=== PATIENT | female | born 1980 | race American Indian/Alaskan Native ===

== ENCOUNTER 2018-07-25 00:40 | Emergency (ER) | payer MEDICAID ==
[2018-07-25 01:36] LABS: Basophils # (Auto) 0.1 K/mm3 (0.0-0.1); Basophils % (Auto) 1.1 % (0.0-1.8); Eosinophils # (Auto) 0.1 K/mm3 (0.0-0.4); Eosinophils % (Auto) 1.1 % (0.0-4.3); Hematocrit 35.3 % (30.3-42.9); Hemoglobin 11.2 gm/dl (10.1-14.3); Lymphocytes # (Auto) 1.5 K/mm3 (1.2-5.4); Lymphocytes % (Auto) 31.3 % (13.4-35.0); Mean Corpuscular HGB Conc 32 % (30-34); Mean Corpuscular Volume 78 fl (79-97); Monocytes # (Auto) 0.6 K/mm3 (0.0-0.8); Monocytes % (Auto) 12.7 % (0.0-7.3); Platelet Count 338 K/mm3 (140-440); Red Blood Count 4.53 M/mm3 (3.65-5.03)
[2018-07-25 01:45] LABS: Red Cell Distribution Width 20.8 % (13.2-15.2)
[2018-07-25 01:46] LABS: INR 1.01 (0.87-1.13)
[2018-07-25 01:58] LABS: BUN/Creatinine Ratio 10; Blood Urea Nitrogen 6 mg/dL (7-17); Calcium 9.4 mg/dL (8.4-10.2); Hemolysis Index 75
--- NOTE | 2018-07-25 02:29 | XRay Report ---
PROCEDURE: XR CHEST 1V AP TECHNIQUE: Chest radiograph single view. HISTORY: Chest Pain COMPARISONS: None . FINDINGS: Heart: Normal. Mediastinum/Vessels: Normal. Lungs/Pleural space: Normal. Bony thorax: No acute osseous abnormality. Life support devices: None. IMPRESSION: No acute cardiopulmonary abnormality. This document is electronically signed by Kurt Hudson MD., Jul 25 2018 02:26:53 AM ET
--- NOTE | 2018-07-25 03:09 | Emergency Department Report ---
ED Chest Pain HPI - General Chief Complaint: Chest Pain Stated Complaint: CHEST PAIN Time Seen by Provider: 07/25/18 02:48 Source: patient Mode of arrival: Ambulatory Limitations: No Limitations - History of Present Illness Initial Comments: This is a 38-year-old female with a history of hypertension recently started new medication who presents to ED complaining of knee chest pain 2 days. Patient states that she has an appointment with her primary care physician on Saturday. Patient says she didn't taken his hypertension medication for the past week. Patient states that pain is localized to mid to left and does not radiate. She admits recent head cold positive disease history of asthma, shortness of breath, headache or blurred vision MD Complaint: chest pain - Related Data Previous Rx's Medication Instructions Recorded Last Taken Type Naproxen [Naprosyn] 500 mg PO BID #20 tablet 07/25/18 Unknown Rx amLODIPine [Norvasc] 10 mg PO DAILY #30 tab 07/25/18 Unknown Rx Allergies Allergy/AdvReac Type Severity Reaction Status Date / Time No Known Allergies Allergy Unverified 07/25/18 00:47 Heart Score - HEART Score History: Slightly suspicious EKG: Normal Age: < 45 Risk factors: No known risk factors Troponin: < normal limit HEART Score: 0 ED Review of Systems ROS: Stated complaint: CHEST PAIN Other details as noted in HPI Comment: All other systems reviewed and negative ED Past Medical Hx - Past Medical History Previous Medical History?: Yes Hx Hypertension: Yes - Surgical History Past Surgical History?: Yes Additional Surgical History: Ovarian cyst removed, Ectopic , c-sec X 5 - Social History Smoking Status: Current Every Day Smoker Substance Use Type: None - Medications Home Medications: Home Medications Medication Instructions Recorded Confirmed Last Taken Type Naproxen [Naprosyn] 500 mg PO BID #20 tablet 07/25/18 Unknown Rx amLODIPine [Norvasc] 10 mg PO DAILY #30 tab 07/25/18 Unknown Rx ED Physical Exam - General Limitations: No Limitations General appearance: alert, in no apparent distress - Head Head exam: Present: atraumatic, normocephalic - Eye Eye exam: Present: normal appearance - ENT ENT exam: Present: mucous membranes moist - Neck Neck exam: Present: normal inspection - Respiratory Respiratory exam: Present: normal lung sounds bilaterally. Absent: respiratory distress - Cardiovascular Cardiovascular Exam: Present: regular rate, normal rhythm. Absent: systolic murmur, diastolic murmur, rubs, gallop - GI/Abdominal GI/Abdominal exam: Present: soft, normal bowel sounds - Extremities Exam Extremities exam: Present: normal inspection - Back Exam Back exam: Present: normal inspection - Neurological Exam Neurological exam: Present: alert, oriented X3 - Psychiatric Psychiatric exam: Present: normal affect, normal mood - Skin Skin exam: Present: warm, dry, intact, normal color. Absent: rash ED Course Vital Signs 07/25/18 07/25/18 07/25/18 00:48 02:23 04:39 Temperature 98.2 F Pulse Rate 87 Respiratory 18 Rate Blood Pressure 177/126 Blood Pressure 173/115 160/110 [Left] O2 Sat by Pulse 100 Oximetry ERNESTO score - Ernesto Score Age > 65: (0) No Aspirin use within the Past 7 Days: (0) No 3 or more CAD Risk Factors: (0) No 2 or more Angina events in past 24 hrs: (0) No Known CAD with more than 50% Stenosis: (0) No Elevated Cardiac Markers: (0) No ST Deviation Greater than 0.5mm: (0) No ERNESTO Score: 0 ED Medical Decision Making - Lab Data Result diagrams: 07/25/18 01:23 07/25/18 01:23 - EKG Data EKG shows normal: sinus rhythm Rate: normal - Radiology Data Radiology results: report reviewed, image reviewed TECHNIQUE: Chest radiograph single view. HISTORY: Chest Pain COMPARISONS: None . FINDINGS: Heart: Normal. Mediastinum/Vessels: Normal. Lungs/Pleural space: Normal. Bony thorax: No acute osseous abnormality. Life support devices: None. IMPRESSION: No acute cardiopulmonary abnormality. This document is electronically signed by Kurt Hudson MD., Jul 25 2018 02:26:53 AM ET Transcribed By: EDGAR Dictated By: KURT HUDSON MD Electronically Authenticated By: KURT HUDSON MD Signed Date/Time: 07/25/18228 - Medical Decision Making 38-year-old presents with chest pain. All labs within normal limits troponin negative. Chest x-ray shows no acute cardiopulmonary abnormality. Discussed his findings with the patient. Discussed the patient to follow up with primary care physician as scheduled for Saturday. Discussed referral will be given for central sterile technician and noted to follow up. Critical care attestation.: If time is entered above; I have spent that time in minutes in the direct care of this critically ill patient, excluding procedure time. ED Disposition Clinical Impression: Chest pain Disposition: DC-01 TO HOME OR SELFCARE Is pt being admited?: No Does the pt Need Aspirin: No Condition: Stable Instructions: Chest Pain (ED), Costochondritis (ED) Additional Instructions: Make sure to follow up with the primary care physician as discussed. Take all your medications as you've been prescribed. If you have any worsening symptoms or develop new symptoms please return to ED immediately. Prescriptions: Naproxen [Naprosyn] 500 mg PO BID #20 tablet amLODIPine [Norvasc] 10 mg PO DAILY #30 tab Referrals: KEITH BLANDON MD [Primary Care Provider] - 3-5 Days JOSÉ MIGUEL YAP MD [Staff Physician] - 3-5 Days Forms: Work/School Release Form(ED) Time of Disposition: 03:17
[2018-07-25] MEDS ORDERED: CATAPRES ONE (03:43)
[2018-07-25] MEDS ORDERED: IBUPROFEN ONE (03:44)
[2018-07-25] MEDS ORDERED: CATAPRES PO ONE (03:47)
[2018-07-25] MEDS ORDERED: IBUPROFEN PO ONE (03:56)
[2018-07-25 04:40] VITALS: BP 160/110
== END 2018-07-25 04:42 | disposition home or self-care (01) ==
LOC: ED 00:40
DX: R07.89 Other chest pain (principal); R06.02 Shortness of breath; I10 Essential (primary) hypertension; F17.200 Nicotine dependence, unspecified, uncomplicated
CPT/HCPCS: 36415; 71045; 80048; 84484; 85025; 85610; 93005; 93010; 99284

== ENCOUNTER 2018-09-22 11:54 | Emergency (ER) | payer MEDICAID ==
--- NOTE | 2018-09-22 12:05 | Emergency Department Report ---
Blank Doc - Documentation Documentation: This is a 38-year-old female that presents with left breast pain and swelling. Had a biopsy done few weeks ago. This initial assessment/diagnostic orders/clinical plan/treatment(s) is/are subject to change based on patient's health status, clinical progression and re-assessment by fellow clinical providers in the ED. Further treatment and workup at subsequent clinical providers discretion. Patient/guardians urged not to elope from the ED as their condition may be serious if not clinically assessed and managed. Initial orders include: 1- Patient sent to main ED for further evaluation and treatment 2- labs
[2018-09-22 12:07] VITALS: BP 154/109
[2018-09-22 12:22] LABS: Basophils # (Auto) 0.1 K/mm3 (0.0-0.1); Basophils % (Auto) 1.7 % (0.0-1.8); Eosinophils # (Auto) 0.1 K/mm3 (0.0-0.4); Eosinophils % (Auto) 1.2 % (0.0-4.3); Hematocrit 26.5 % (30.3-42.9); Hemoglobin 8.8 gm/dl (10.1-14.3); Lymphocytes # (Auto) 1.7 K/mm3 (1.2-5.4); Lymphocytes % (Auto) 25.9 % (13.4-35.0); Mean Corpuscular HGB Conc 33 % (30-34); Mean Corpuscular Volume 77 fl (79-97); Monocytes # (Auto) 0.6 K/mm3 (0.0-0.8); Monocytes % (Auto) 9.4 % (0.0-7.3); Platelet Count 253 K/mm3 (140-440); Red Blood Count 3.42 M/mm3 (3.65-5.03)
[2018-09-22 12:23] LABS: Red Cell Distribution Width 22.7 % (13.2-15.2)
--- NOTE | 2018-09-22 12:29 | Emergency Department Report ---
- General Chief Complaint: Pain General Stated Complaint: L BREAST PAIN/SWOLLEN Time Seen by Provider: 09/22/18 12:03 Source: patient Mode of arrival: Ambulatory Limitations: No Limitations - History of Present Illness Initial Comments: Mrs. Delacruz is a very pleasant 38-year-old female who is 6 days status post left breast biopsy. The biopsy was performed by breast surgeon Dr. Stern. Recently her left breast became edematous hard heavy. Denies fever. Denies injury. Follow-up with Dr. Stern's in 2 days to review the results of her breast biopsy. -: Gradual, days(s) (2) Location: chest - Related Data Previous Rx's Medication Instructions Recorded Last Taken Type Naproxen [Naprosyn] 500 mg PO BID #20 tablet 07/25/18 Unknown Rx amLODIPine [Norvasc] 10 mg PO DAILY #30 tab 07/25/18 Unknown Rx Sulfamethoxazole/Trimethoprim 1 each PO BID 7 Days #14 tablet 09/22/18 Unknown Rx [Bactrim DS TAB] cephALEXin [Keflex] 500 mg PO TID 7 Days #21 capsule 09/22/18 Unknown Rx Allergies Allergy/AdvReac Type Severity Reaction Status Date / Time No Known Allergies Allergy Verified 09/22/18 11:55 ED Review of Systems ROS: Stated complaint: L BREAST PAIN/SWOLLEN Other details as noted in HPI Comment: All other systems reviewed and negative Constitutional: denies: fever, malaise Respiratory: denies: cough, shortness of breath ED Past Medical Hx - Past Medical History Hx Hypertension: Yes - Surgical History Additional Surgical History: Ovarian cyst removed, Ectopic , c-sec X 5 biospy - Social History Smoking Status: Current Every Day Smoker Substance Use Type: None - Medications Home Medications: Home Medications Medication Instructions Recorded Confirmed Last Taken Type Naproxen [Naprosyn] 500 mg PO BID #20 tablet 07/25/18 Unknown Rx amLODIPine [Norvasc] 10 mg PO DAILY #30 tab 07/25/18 Unknown Rx Sulfamethoxazole/Trimethoprim 1 each PO BID 7 Days #14 tablet 09/22/18 Unknown Rx [Bactrim DS TAB] cephALEXin [Keflex] 500 mg PO TID 7 Days #21 capsule 09/22/18 Unknown Rx ED Physical Exam - General Limitations: No Limitations General appearance: alert, in no apparent distress - Head Head exam: Present: atraumatic, normocephalic - Eye Eye exam: Present: normal appearance - ENT ENT exam: Present: mucous membranes moist - Neck Neck exam: Present: normal inspection, full ROM - Respiratory Respiratory exam: Present: other (left breast: edematous induration at the lat eral region clean bandage and tegaderm). Absent: respiratory distress - Extremities Exam Extremities exam: Present: normal inspection, tenderness - Neurological Exam Neurological exam: Present: alert, oriented X3 - Psychiatric Psychiatric exam: Present: normal affect, normal mood - Skin Skin exam: Present: warm, dry, intact, normal color ED Course Vital Signs 09/22/18 12:03 Temperature 99.3 F Pulse Rate 92 H Respiratory 18 Rate Blood Pressure 154/109 O2 Sat by Pulse 100 Oximetry ED Medical Decision Making - Lab Data Result diagrams: 09/22/18 12:12 - Medical Decision Making Ms. Delacruz presents with induration and edema after biopsy of breast lump. Differential diagnosis includes postoperative infection, hematoma, seroma. I have prescribed Bactrim and cephalexin. She'll follow with her breast surgeon as previously scheduled in 2 days. Critical care attestation.: If time is entered above; I have spent that time in minutes in the direct care of this critically ill patient, excluding procedure time. ED Disposition Clinical Impression: Postoperative complication, H/O breast biopsy, Breast lump Disposition: -01 TO HOME OR SELFCARE Is pt being admited?: No Does the pt Need Aspirin: No Condition: Stable Additional Instructions: Please provide this discharge paperwork to Dr. Stern on your next appointment. Prescriptions: Sulfamethoxazole/Trimethoprim [Bactrim DS TAB] 1 each PO BID 7 Days #14 tablet cephALEXin [Keflex] 500 mg PO TID 7 Days #21 capsule Forms: Work/School Release Form(ED)
[2018-09-22 12:43] LABS: BUN/Creatinine Ratio 12; Blood Urea Nitrogen 7 mg/dL (7-17); Calcium 8.7 mg/dL (8.4-10.2); Hemolysis Index 0
== END 2018-09-22 12:52 | disposition home or self-care (01) ==
LOC: ED 11:54
DX: T81.89XA Other complications of procedures, not elsewhere classified, initial encounter (principal); N63.0 Unspecified lump in unspecified breast; I10 Essential (primary) hypertension; F17.200 Nicotine dependence, unspecified, uncomplicated; Z79.899 Other long term (current) drug therapy; Y84.8 Other medical procedures as the cause of abnormal reaction of the patient, or of later complication, without mention of misadventure at the time of the procedure; Y92.89 Other specified places as the place of occurrence of the external cause
CPT/HCPCS: 36415; 80048; 84703; 85025; 99283

== ENCOUNTER 2018-12-12 09:34 | Inpatient (IN) | payer MEDICAID ==
[2018-12-12] MEDS ORDERED: BENADRYL ONE (09:40)
[2018-12-12] MEDS ORDERED: DECADRON ONE (09:41)
[2018-12-12] MEDS ORDERED: PEPCID IV ONE ×2 (09:41→09:49)
[2018-12-12] MEDS ORDERED: DECADRON IV ONE (09:49)
[2018-12-12] MEDS ORDERED: BENADRYL IV ONE (09:50)
[2018-12-12] MEDS ORDERED: ATIVAN ONE (10:00)
[2018-12-12] MEDS ORDERED: LABETALOL IV ONE ×6 (10:00→11:16)
[2018-12-12] MEDS: ATIVAN IV PRN (10:05)
[2018-12-12] MEDS ORDERED: DIPRIVAN 10 MG/ML IV ONE ×3 (10:15→15:36)
[2018-12-12] MEDS ORDERED: DIPRIVAN 10 MG/ML 1,000 MG/100 ML BOTTLE IV ONE (10:15)
[2018-12-12] MEDS ORDERED: QUELICIN IV ONE (10:15)
[2018-12-12] MEDS ORDERED: APRESOLINE ONE (10:23)
[2018-12-12] MEDS ORDERED: VERSED IV NR (10:25)
[2018-12-12] MEDS ORDERED: AMIDATE IV ONE ×2 (10:25→22:54)
[2018-12-12] MEDS: DIPRIVAN 10 MG/ML 1,000 MG/100 ML BOTTLE IV SCH ×2 (10:30→20:37)
[2018-12-12] MEDS ORDERED: VASELINE LIP THERAPY TP PRN (10:31)
[2018-12-12] MEDS ORDERED: ARTIFICIAL TEARS OPHTH OINT OU PRN (10:31)
[2018-12-12] MEDS ORDERED: ATIVAN 100 MG in NACL 0.9% 50 ML, VIAFLEX EMPTY CONTAINER 0 ML IV SCH (11:00)
[2018-12-12] MEDS ORDERED: CARDENE 50 MG in NACL 0.9% 250ML 230 ML IV SCH ×2 (11:00→12:00)
--- NOTE | 2018-12-12 11:03 | XRay Report ---
CHEST 1 VIEW INDICATION: ETT placement. COMPARISON: 07/25/2018 FINDINGS: Support devices: An endotracheal tube is in satisfactory position with the tip approximately 2 cm abo ve the [place]. Heart: Within normal limits. Pulmonary vasculature: Normal. Lungs/Pleura: No acute air space or interstitial disease. No pleural effusion. No pneumothorax. Additional findings: None. IMPRESSION: Satisfactory placement of the endotracheal tube. No CHF or pneumonia. Signer Name: Josse Benson MD Signed: 12/12/2018 10:59 AM Workstation Name: [id number]
[2018-12-12] MEDS ORDERED: APRESOLINE IV ONE (11:12)
[2018-12-12] MEDS ORDERED: ZEMURON IV ONE ×2 (11:34→22:54)
[2018-12-12 12:12] LABS: Hematocrit 31.9 % (30.3-42.9); Hemoglobin 10.1 gm/dl (10.1-14.3); Mean Corpuscular HGB Conc 32 % (30-34); Mean Corpuscular Volume 76 fl (79-97); Platelet Count 309 K/mm3 (140-440); Red Blood Count 4.21 M/mm3 (3.65-5.03); Red Cell Distribution Width 19.7 % (13.2-15.2)
--- NOTE | 2018-12-12 12:21 | History and Physical Report ---
History of Present Illness Chief complaint: she cant breathe History of present illness: 38 YO Female with HTN, NIcotine Dependence presents to ED for evaluation. At time of my exam, the patient is intubated and on vent support and unable to provide history. Pt history taken from ED staff. As per staff, the patient rec ently was initiated on antihypertensive therapy with lisinopril and took her first dose last night. Pt awoke from sleep this morning with swollen lips, and sought medical care at Urgent Care. Pt seen and evaluated at [facility]. EMS was notified by the physicain and the patient transported to [facility]. Pt seen and evaluated in ED and found to have Angioedema which was complicated by Acute Hypoxemic Respiratory Failure and an inability to protect her airway. Pt intubated and placed on vent support. Pt admitted to ICU. Pulmonary team consulted in ED. Past History Past Medical History: other (hpi) Past Surgical History: , Other (breast biopsy) Social history: , lives with family, smoking. denies: alcohol abuse, prescription drug abuse Family history: diabetes, hypertension Medications and Allergies Allergies Allergy/AdvReac Type Severity Reaction Status Date / Time lisinopril Allergy Severe Angioedema Verified 12/12/18 12:50 Penicillins Allergy Unknown Unknown Verified 12/12/18 12:50 Home Medications Medication Instructions Recorded Confirmed Last Taken Type amLODIPine [Norvasc] 10 mg PO DAILY #30 tab 07/25/18 12/12/18 12/10/18 Rx Active Meds: Active Medications Hydrophilic Ointment (Vaseline Lip Therapy) 1 applic TP Q2HR PRN PRN Reason: Dry Lips Propofol (Diprivan 10 Mg/Ml) 1,000 mg in 100 mls @ 1.579 mls/hr IV TITR LIBORIO; Protocol Last Titration: 12/12/18 12:03 Dose: 25 mcg/kg/min, 7.893 mls/hr Documented by: Lorazepam 100 mg/ Sodium Chloride/ Miscellaneous Information 100 mls @ 1 mls/hr IV TITR LIBORIO; Protocol Last Titration: 12/12/18 11:52 Dose: 2 mg/hr, 2 mls/hr Documented by: Nicardipine HCl 50 mg/ Sodium (Chloride) 250 mls @ 25 mls/hr IV TITR LIBORIO; Protocol Last Admin: 12/12/18 11:45 Dose: 5 mg/hr, 25 mls/hr Documented by: Lorazepam (Ativan) 2 mg IV Q10MIN PRN PRN Reason: Agitation Last Admin: 12/12/18 10:05 Dose: 2 mg Documented by: Midazolam HCl (Versed) 2 mg IV ONCE NR Stop: 12/12/18 23:59 Last Admin: 12/12/18 10:28 Dose: 2 mg Documented by: Multi-Ingred Cream/Lotion/Oil/Oint (Artificial Tears Ophth Oint) 1 applic OU Q4HR PRN PRN Reason: Dry Eye(s) Review of Systems ROS unobtainable: due to endotracheal tube Exam - Constitutional Vitals: Temp Pulse Resp BP Pulse Ox 97.8 F 110 H 12 229/154 100 12/12/18 09:35 12/12/18 11:20 12/12/18 10:00 12/12/18 11:20 12/12/18 10:37 General appearance: Present: mild distress - EENT Eyes: Present: miosis ENT: hearing intact, clear oral mucosa - Neck Neck: Present: supple, normal ROM - Respiratory Respiratory effort: labored, accessory muscle use, stridor Respiratory: bilateral: diminished - Cardiovascular Heart Sounds: Present: S1 & S2. Absent: rub, click - Extremities Extremities: pulses symmetrical, No edema Peripheral Pulses: within normal limits - Abdominal General gastrointestinal: Present: soft, non-tender, non-distended, normal bowel sounds Female genitourinary: Present: normal - Integumentary Integumentary: Present: clear, warm, dry - Musculoskeletal Musculoskeletal: gait normal, strength equal bilaterally - Psychiatric Psychiatric: other (UTO) - Neurologic Neurologic: CNII-XII intact, moves all extremities, no gait normal Results - Labs CBC & Chem 7: 12/12/18 11:24 12/12/18 11:24 Labs: Abnormal lab results 12/12/18 12/12/18 Range/Units 11:24 11:30 WBC 11.9 H (4.5-11.0) K/mm3 MCV 76 L (79-97) fl MCH 24 L (28-32) pg RDW 19.7 H (13.2-15.2) % POC ABG pO2 385 H (80-105) Assessment and Plan - Patient Problems (1) Acute hypoxemic respiratory failure Current Visit: Yes Status: Acute Plan to address problem: Admit to ICU, wean vent as tolerated, daily SBT, supplemental oxygen, nebulizer therapy, ABG, The high probability of a clinically significant, sudden or life threatening deterioration of the [neuro, respiratory, ] system(s) required my full and direct attention, intervention and personal management. The aggregate critical care time was [65] minutes. This time is in addition to time spent performing reported procedures but includes the following: [x] Data Review and interpretation [x] Patient assessment and monitoring of vital signs [x] Documentation [x] Medication orders and management (2) Acidosis Current Visit: Yes Status: Acute Plan to address problem: IVF resuscitation therapy, supportive care. repeat bmp (3) Angioedema due to angiotensin converting enzyme inhibitor (PAM-I) Current Visit: Yes Status: Acute Plan to address problem: IV steroid therapy, supportive care, Lisinopril cessation (4) Malignant hypertension Current Visit: Yes Status: Acute Plan to address problem: Monitor bp q shift, cardene drip, (5) DVT prophylaxis Current Visit: Yes Status: Acute Plan to address problem: SCD to ble while in bed, prophylactic lovenox
[2018-12-12] MEDS ORDERED: PROVENTIL IH PRN (12:22)
[2018-12-12 12:28] LABS: BUN/Creatinine Ratio 20; Blood Urea Nitrogen 8 mg/dL (7-17); Calcium 8.7 mg/dL (8.4-10.2); Hemolysis Index 58
[2018-12-12] MEDS ORDERED: KETALAR ONE (12:33)
[2018-12-12] MEDS ORDERED: fentaNYL DRIP Premix 2,000 MCG/100 ML BAG IV ONE (12:33)
[2018-12-12] MEDS ORDERED: KETALAR IV ONE (12:33)
[2018-12-12 12:35] LABS: INR 1.09 (0.87-1.13)
[2018-12-12 12:40] LABS: Creatine Kinase MB 1.8 ng/mL (0.0-4.0)
[2018-12-12] MEDS ORDERED: fentaNYL DRIP Premix 2,000 MCG/100 ML BAG IV SCH (13:00)
[2018-12-12 13:04] LABS: Alanine Aminotransferase 9 units/L (7-56); Albumin 4.2 g/dL (3.9-5); Bilirubin,Direct 0.2 mg/dL (0-0.2)
[2018-12-12] MEDS ORDERED: NACL 0.9% 500 ML 500 ML ONE (13:11)
--- NOTE | 2018-12-12 13:27 | Consultation ---
History of Present Illness Consult date: 12/12/18 Requesting physician: RAIMUNDO PRAJAPATI Reason for consult: other (Acute hypoxemic Resp Failure on MVS; HTNsive emergency) History of present illness: PULMONARY/CCM CONSULT NOTE (Full dictation # [id number]) Please see dictated notes for full details Medications and Allergies Allergies Allergy/AdvReac Type Severity Reaction Status Date / Time lisinopril Allergy Severe Angioedema Verified 12/12/18 12:50 Penicillins Allergy Unknown Unknown Verified 12/12/18 12:50 Home Medications Medication Instructions Recorded Confirmed Last Taken Type amLODIPine [Norvasc] 10 mg PO DAILY #30 tab 07/25/18 12/12/18 12/10/18 Rx Active Meds: Active Medications Albuterol (Proventil) 2.5 mg IH Q3HRT PRN PRN Reason: Shortness Of Breath Hydrophilic Ointment (Vaseline Lip Therapy) 1 applic TP Q2HR PRN PRN Reason: Dry Lips Propofol (Diprivan 10 Mg/Ml) 1,000 mg in 100 mls @ 1.579 mls/hr IV TITR LIBORIO; Protocol Last Titration: 12/12/18 12:03 Dose: 25 mcg/kg/min, 7.893 mls/hr Documented by: Lorazepam 100 mg/ Sodium Chloride/ Miscellaneous Information 100 mls @ 1 mls/hr IV TITR LIBORIO; Protocol Last Titration: 12/12/18 11:52 Dose: 2 mg/hr, 2 mls/hr Documented by: Nicardipine HCl 50 mg/ Sodium (Chloride) 250 mls @ 25 mls/hr IV TITR LIBORIO; Protocol Last Titration: 12/12/18 12:15 Dose: 0 mg/hr, 0 mls/hr Documented by: Lorazepam (Ativan) 2 mg IV Q10MIN PRN PRN Reason: Agitation Last Admin: 12/12/18 10:05 Dose: 2 mg Documented by: Methylprednisolone Sodium Succinate (Solu-Medrol) 40 mg IV Q12HR LIBORIO Midazolam HCl (Versed) 2 mg IV ONCE NR Stop: 12/12/18 23:59 Last Admin: 12/12/18 10:28 Dose: 2 mg Documented by: Multi-Ingred Cream/Lotion/Oil/Oint (Artificial Tears Ophth Oint) 1 applic OU Q4HR PRN PRN Reason: Dry Eye(s) Sodium Chloride (Sodium Chloride Flush Syringe 10 Ml) 10 ml IV BID LIBORIO Sodium Chloride (Sodium Chloride Flush Syringe 10 Ml) 10 ml IV PRN PRN PRN Reason: LINE FLUSH Physical Examination Vital signs: Vital Signs Temp Pulse Resp BP Pulse Ox 97.8 F 89 12 202/138 100 12/12/18 09:35 12/12/18 09:35 12/12/18 09:35 12/12/18 09:35 12/12/18 09:35 Results - Laboratory Findings CBC and BMP: 12/12/18 11:24 12/12/18 11:24 ABG POC ABG pH 7.404 (7.35-7.45) 12/12/18 11:30 POC ABG pCO2 38.5 (35-45) 12/12/18 11:30 POC ABG pO2 385 (80-105) H 12/12/18 11:30 POC ABG HCO3 24.1 (22-26 mml/L) 12/12/18 11:30 POC ABG Total CO2 25 (23-27mmol/L) 12/12/18 11:30 POC ABG O2 Sat 100 12/12/18 11:30 PT/INR, D-dimer PT 13.8 Sec. (12.2-14.9) 12/12/18 12:04 INR 1.09 (0.87-1.13) 12/12/18 12:04 Abnormal lab findings: Abnormal Labs 12/12/18 12/12/18 12/12/18 11:24 11:24 11:30 WBC 11.9 H MCV 76 L MCH 24 L RDW 19.7 H POC ABG pO2 385 H Sodium 136 L Potassium 3.5 L Carbon Dioxide 19 L Creatinine 0.4 L Glucose 166 H Total Bilirubin Total Creatine Kinase 12/12/18 12/12/18 12:04 12:04 WBC MCV MCH RDW POC ABG pO2 Sodium Potassium Carbon Dioxide Creatinine Glucose Total Bilirubin 1.30 H Total Creatine Kinase 141 H
[2018-12-12] MEDS ORDERED: SUBLIMAZE IV PRN (13:31)
[2018-12-12] MEDS ORDERED: NACL 0.9% 500 ML 500 ML IV ONE (13:33)
[2018-12-12 13:40] LABS: Band Neutrophils # (Manual) 0.2 K/mm3; Eosinophils % (Manual) 0 % (0.0-4.3); Hypochromasia 1+; Platelet Estimate Consistent w Auto; Total Cells Counted 100
--- NOTE | 2018-12-12 13:53 | Emergency Department Report ---
ED General Adult HPI - General Chief complaint: Allergic Reaction Stated complaint: ALLERGIC REACTION Time Seen by Provider: 12/12/18 09:48 Source: EMS Mode of arrival: Stretcher Limitations: Physical Limitation - History of Present Illness Initial comments: This is a 38-year-old female that presents with angioedema secondary to lisinopril presumptively. She took her first lisinopril last night recently prescribed. By this morning she noted that she has swollen lips. I'm told that EMS was notified and advised her to seek care at a nearby urgent care clinic. This is not substantiated and I do not have any run sheets a prehospital care. In any case, she presented to an urgent care clinic. Likely by then her lip edema had worsened. The urgent care physician called EMS for transport. The patient arrived in the emergency department with significant lymphedema and some mild submental edema. She was not having difficulty with breathing or drooling at that time. However her voice did appear to be slightly muffled. There was no nancy stridor. Aside from the facial swelling patient had no other complaint. She's never had a reaction like this before although she is allergic to penicillin (not otherwise unspecified). -: Gradual, hour(s) Location: face Severity scale (0 -10): 0 Improves with: none Worsens with: none Associated Symptoms: denies other symptoms Treatments Prior to Arrival: none - Related Data Previous Rx's Medication Instructions Recorded Last Taken Type amLODIPine [Norvasc] 10 mg PO DAILY #30 tab 07/25/18 12/10/18 Rx Allergies Allergy/AdvReac Type Severity Reaction Status Date / Time lisinopril Allergy Severe Angioedema Verified 12/12/18 12:50 Penicillins Allergy Unknown Unknown Verified 12/12/18 12:50 ED Review of Systems ROS: Stated complaint: ALLERGIC REACTION Other details as noted in HPI Constitutional: denies: chills, fever Eyes: denies: eye pain, eye discharge, vision change ENT: denies: ear pain, throat pain Respiratory: denies: cough, shortness of breath, wheezing Cardiovascular: denies: chest pain, palpitations Endocrine: no symptoms reported Gastrointestinal: denies: abdominal pain, nausea, diarrhea Genitourinary: denies: urgency, dysuria, discharge Musculoskeletal: denies: back pain, joint swelling, arthralgia Skin: denies: rash, lesions Neurological: denies: headache, weakness, paresthesias Psychiatric: denies: anxiety, depression Hematological/Lymphatic: denies: easy bleeding, easy bruising ED Past Medical Hx - Past Medical History Previous Medical History?: Yes Hx Hypertension: Yes - Surgical History Past Surgical History?: Yes Additional Surgical History: Ovarian cyst removed, Ectopic , c-sec X 5 biospy - Social History Smoking Status: Current Some Day Smoker Substance Use Type: None - Medications Home Medications: Home Medications Medication Instructions Recorded Confirmed Last Taken Type amLODIPine [Norvasc] 10 mg PO DAILY #30 tab 07/25/18 12/12/18 12/10/18 Rx ED Physical Exam - General Limitations: Physical Limitation General appearance: alert, in no apparent distress - Head Head exam: Present: atraumatic, normocephalic - Eye Eye exam: Present: normal appearance - ENT ENT exam: Present: mucous membranes moist. Absent: normal orophraynx (there is mild edema noted of the soft palate. The uvula is still midline. There is no tongue edema. There is 2+ lip) - Neck Neck exam: Present: normal inspection, other (very mild submental edema) - Respiratory Respiratory exam: Present: normal lung sounds bilaterally. Absent: respiratory distress - Cardiovascular Cardiovascular Exam: Present: regular rate, normal rhythm. Absent: systolic murmur, diastolic murmur, rubs, gallop - GI/Abdominal GI/Abdominal exam: Present: soft, normal bowel sounds. Absent: distended, tenderness, guarding, rebound - Extremities Exam Extremities exam: Present: normal inspection - Back Exam Back exam: Present: normal inspection - Neurological Exam Neurological exam: Present: alert, oriented X3, CN II-XII intact. Absent: motor sensory deficit - Psychiatric Psychiatric exam: Present: normal affect, normal mood - Skin Skin exam: Present: warm, dry, intact, normal color. Absent: rash ED Course Vital Signs 12/12/18 12/12/18 12/12/18 09:35 09:59 10:00 Temperature 97.8 F Pulse Rate 89 105 H Pulse Rate [ 102 H Anterior Bilateral Throughout] Pulse Rate [ 146 H Posterior Bilateral Throughout] Respiratory 12 16 Rate Respiratory 22 Rate [Anterior Bilateral Throughout] Respiratory 23 Rate [Posterior Bilateral Throughout] Blood Pressure 202/138 Blood Pressure 202/138 217/135 [Left] O2 Sat by Pulse 100 100 Oximetry 12/12/18 12/12/18 12/12/18 10:15 10:30 10:37 Temperature Pulse Rate 86 104 H 101 H Pulse Rate [ Anterior Bilateral Throughout] Pulse Rate [ Posterior Bilateral Throughout] Respiratory 13 15 Rate Respiratory Rate [Anterior Bilateral Throughout] Respiratory Rate [Posterior Bilateral Throughout] Blood Pressure 138/99 Blood Pressure 187/115 138/99 [Left] O2 Sat by Pulse 100 99 100 Oximetry 12/12/18 12/12/18 12/12/18 10:45 11:00 11:15 Temperature Pulse Rate 103 H 107 H 108 H Pulse Rate [ Anterior Bilateral Throughout] Pulse Rate [ Posterior Bilateral Throughout] Respiratory 18 18 15 Rate Respiratory Rate [Anterior Bilateral Throughout] Respiratory Rate [Posterior Bilateral Throughout] Blood Pressure Blood Pressure 145/99 182/135 229/154 [Left] O2 Sat by Pulse 100 100 100 Oximetry 12/12/18 12/12/18 12/12/18 11:20 11:30 11:45 Temperature Pulse Rate 110 H 111 H 112 H Pulse Rate [ Anterior Bilateral Throughout] Pulse Rate [ Posterior Bilateral Throughout] Respiratory 17 Rate Respiratory Rate [Anterior Bilateral Throughout] Respiratory Rate [Posterior Bilateral Throughout] Blood Pressure 229/154 Blood Pressure 191/117 175/110 [Left] O2 Sat by Pulse 100 Oximetry 12/12/18 12/12/18 12/12/18 12:00 12:15 12:30 Temperature Pulse Rate 108 H 106 H 104 H Pulse Rate [ Anterior Bilateral Throughout] Pulse Rate [ Posterior Bilateral Throughout] Respiratory 17 17 17 Rate Respiratory Rate [Anterior Bilateral Throughout] Respiratory Rate [Posterior Bilateral Throughout] Blood Pressure Blood Pressure 144/95 121/77 114/72 [Left] O2 Sat by Pulse 100 100 100 Oximetry 12/12/18 12:45 Temperature Pulse Rate 101 H Pulse Rate [ Anterior Bilateral Throughout] Pulse Rate [ Posterior Bilateral Throughout] Respiratory 15 Rate Respiratory Rate [Anterior Bilateral Throughout] Respiratory Rate [Posterior Bilateral Throughout] Blood Pressure Blood Pressure 101/54 [Left] O2 Sat by Pulse 100 Oximetry - Reevaluation(s) Reevaluation #1: The patient was given medication for anaphylaxis. She was begun on a racemic neb however this was discontinued because she became tachycardic. Blood pressure was controlled with labetalol and later hydralazine. We made strong efforts to improve her blood pressure prior to RSI provider with ample sedation. When we reached a reasonable target for elective intubation which was deemed necessary she was given a paralytic. She had been given Ativan and propofol to sedate as an adoptive agent. She was intubated without difficulty on direct laryngoscopy single attempt 7.5 Mongolian endotracheal tube at 22 cm eliana. After intubation the patient's blood pressure continued to be accelerated. She was ultimately placed on a Cardene drip. Eventually her blood pressure was adequately controlled and the Cardene drip was continued. She continued to have problems with sedation so a second sedative drip was ordered. She required more immediate sedation so she was given 1 dose of ketamine when her blood pressure was normotensive. Much later, her blood pressure again became difficult to control so she was placed back on Cardene. Patient's care was transferred to Dr. Gaspar, the hospitalist and the nip wrapper. 12/12/18 15:00 - Intubation Time Out Performed: Yes Sedative: other Paralytic: Succinylcholine Laryngoscope: Dory Size: 4 ET Tube Size: 7.5 Tube Secured Depth (cm): 22 Tube Secured Location: teeth Tube Placement Confirmation: visualized tube passing t Patient Tolerated Procedure: no complications Intubation Complications: none Additional Comments: Good tube position on CXR. ED Medical Decision Making - Lab Data Result diagrams: 12/12/18 11:24 12/12/18 11:24 Laboratory Results - last 24 hr 12/12/18 12/12/18 12/12/18 11:24 11:24 11:30 WBC 11.9 H RBC 4.21 Hgb 10.1 Hct 31.9 MCV 76 L MCH 24 L MCHC 32 RDW 19.7 H Plt Count 309 Lymph % (Auto) Entry Level Marketing Assistant [place] % (Auto) Entry Level Marketing Assistant Eos % (Auto) Entry Level Marketing Assistant Baso % (Auto) Entry Level Marketing Assistant Lymph # Entry Level Marketing Assistant [place] # Entry Level Marketing Assistant Eos # Entry Level Marketing Assistant Baso # Entry Level Marketing Assistant Add Manual Diff Complete Total Counted 100 Seg Neutrophils % Entry Level Marketing Assistant Seg Neuts % (Manual) 90.0 H Band Neutrophils % 2.0 Lymphocytes % (Manual) 6.0 L Reactive Lymphs % (Man) 0 Monocytes % (Manual) 1.0 Eosinophils % (Manual) 0 Basophils % (Manual) 1.0 Metamyelocytes % 0 Myelocytes % 0 Promyelocytes % 0 Blast Cells % 0 Nucleated RBC % Not Reportable Seg Neutrophils # Entry Level Marketing Assistant Seg Neutrophils # Man 10.7 H Band Neutrophils # 0.2 Lymphocytes # (Manual) 0.7 L Abs React Lymphs (Man) 0.0 Monocytes # (Manual) 0.1 Eosinophils # (Manual) 0.0 Basophils # (Manual) 0.1 Metamyelocytes # 0.0 Myelocytes # 0.0 Promyelocytes # 0.0 Blast Cells # 0.0 WBC Morphology Not Reportable Hypersegmented Neuts Not Reportable Hyposegmented Neuts Not Reportable Hypogranular Neuts Not Reportable Smudge Cells Not Reportable Toxic Granulation Not Reportable Toxic Vacuolation Not Reportable Dohle Bodies Not Reportable Pelger-Huet Anomaly Not Reportable Art Rods Not Reportable Platelet Estimate Consistent w auto Clumped Platelets Not Reportable Plt Clumps, EDTA Not Reportable Large Platelets Not Reportable Giant Platelets Not Reportable Platelet Satelliting Not Reportable Plt Morphology Comment Not Reportable RBC Morphology Not Reportable Dimorphic RBCs Not Reportable Polychromasia Not Reportable Hypochromasia 1+ Poikilocytosis Not Reportable Anisocytosis Not Reportable Microcytosis Few Macrocytosis Not Reportable Spherocytes Not Reportable Pappenheimer Bodies Not Reportable Sickle Cells Not Reportable Target Cells Not Reportable Tear Drop Cells Not Reportable Ovalocytes Not Reportable Helmet Cells Not Reportable [place] Bodies Not Reportable Lupton Rings Not Reportable Casa Cells Not Reportable Bite Cells Not Reportable Crenated Cell Not Reportable Elliptocytes Not Reportable Acanthocytes (Spur) Not Reportable Rouleaux Not Reportable Hemoglobin C Crystals Not Reportable Schistocytes Not Reportable Malaria parasites Not Reportable Perfecto Bodies Not Reportable Hem Pathologist Commnt No PT INR APTT POC ABG pH 7.404 POC ABG pCO2 38.5 POC ABG pO2 385 H POC ABG HCO3 24.1 POC ABG Total CO2 25 POC ABG O2 Sat 100 POC ABG Base Excess -1 FiO2 70 Sodium 136 L Potassium 3.5 L Chloride 100.5 Carbon Dioxide 19 L Anion Gap 20 BUN 8 Creatinine 0.4 L Estimated GFR > 60 BUN/Creatinine Ratio 20 Glucose 166 H Lactic Acid Calcium 8.7 Magnesium Total Bilirubin Direct Bilirubin Indirect Bilirubin AST ALT Alkaline Phosphatase Total Creatine Kinase CK-MB (CK-2) CK-MB (CK-2) Rel Index Troponin T NT-Pro-B Natriuret Pep Total Protein Albumin Albumin/Globulin Ratio HCG, Qual 12/12/18 12/12/18 12/12/18 12:04 12:04 12:04 WBC RBC Hgb Hct MCV MCH MCHC RDW Plt Count Lymph % (Auto) [place] % (Auto) Eos % (Auto) Baso % (Auto) Lymph # [place] # Eos # Baso # Add Manual Diff Total Counted Seg Neutrophils % Seg Neuts % (Manual) Band Neutrophils % Lymphocytes % (Manual) Reactive Lymphs % (Man) Monocytes % (Manual) Eosinophils % (Manual) Basophils % (Manual) Metamyelocytes % Myelocytes % Promyelocytes % Blast Cells % Nucleated RBC % Seg Neutrophils # Seg Neutrophils # Man Band Neutrophils # Lymphocytes # (Manual) Abs React Lymphs (Man) Monocytes # (Manual) Eosinophils # (Manual) Basophils # (Manual) Metamyelocytes # Myelocytes # Promyelocytes # Blast Cells # WBC Morphology Hypersegmented Neuts Hyposegmented Neuts Hypogranular Neuts Smudge Cells Toxic Granulation Toxic Vacuolation Dohle Bodies Pelger-Huet Anomaly Art Rods Platelet Estimate Clumped Platelets Plt Clumps, EDTA Large Platelets Giant Platelets Platelet Satelliting Plt Morphology Comment RBC Morphology Dimorphic RBCs Polychromasia Hypochromasia Poikilocytosis Anisocytosis Microcytosis Macrocytosis Spherocytes Pappenheimer Bodies Sickle Cells Target Cells Tear Drop Cells Ovalocytes Helmet Cells [place] Bodies [place] Rings Casa Cells Bite Cells Crenated Cell Elliptocytes Acanthocytes (Spur) Rouleaux Hemoglobin C Crystals Schistocytes Malaria parasites Perfecto Bodies Hem Pathologist Commnt PT 13.8 INR 1.09 APTT 28.0 POC ABG pH POC ABG pCO2 POC ABG pO2 POC ABG HCO3 POC ABG Total CO2 POC ABG O2 Sat POC ABG Base Excess FiO2 Sodium Potassium Chloride Carbon Dioxide Anion Gap BUN Creatinine Estimated GFR BUN/Creatinine Ratio Glucose Lactic Acid Calcium Magnesium 1.70 Total Bilirubin 1.30 H Direct Bilirubin 0.2 Indirect Bilirubin 1.1 AST 25 ALT 9 Alkaline Phosphatase 59 Total Creatine Kinase 141 H CK-MB (CK-2) 1.8 CK-MB (CK-2) Rel Index 1.2 Troponin T < 0.010 NT-Pro-B Natriuret Pep 67.63 Total Protein 7.8 Albumin 4.2 Albumin/Globulin Ratio 1.2 HCG, Qual 12/12/18 12/12/18 12:04 12:04 WBC RBC Hgb Hct MCV MCH MCHC RDW Plt Count Lymph % (Auto) [place] % (Auto) Eos % (Auto) Baso % (Auto) Lymph # [place] # Eos # Baso # Add Manual Diff Total Counted Seg Neutrophils % Seg Neuts % (Manual) Band Neutrophils % Lymphocytes % (Manual) Reactive Lymphs % (Man) Monocytes % (Manual) Eosinophils % (Manual) Basophils % (Manual) Metamyelocytes % Myelocytes % Promyelocytes % Blast Cells % Nucleated RBC % Seg Neutrophils # Seg Neutrophils # Man Band Neutrophils # Lymphocytes # (Manual) Abs React Lymphs (Man) Monocytes # (Manual) Eosinophils # (Manual) Basophils # (Manual) Metamyelocytes # Myelocytes # Promyelocytes # Blast Cells # WBC Morphology Hypersegmented Neuts Hyposegmented Neuts Hypogranular Neuts Smudge Cells Toxic Granulation Toxic Vacuolation Dohle Bodies Pelger-Huet Anomaly Art Rods Platelet Estimate Clumped Platelets Plt Clumps, EDTA Large Platelets Giant Platelets Platelet Satelliting Plt Morphology Comment RBC Morphology Dimorphic RBCs Polychromasia Hypochromasia Poikilocytosis Anisocytosis Microcytosis Macrocytosis Spherocytes Pappenheimer Bodies Sickle Cells Target Cells Tear Drop Cells Ovalocytes Helmet Cells [place] Bodies Lu[place] Rings Casa Cells Bite Cells Crenated Cell Elliptocytes Acanthocytes (Spur) Rouleaux Hemoglobin C Crystals Schistocytes Malaria parasites Perfecto Bodies Hem Pathologist Commnt PT INR APTT POC ABG pH POC ABG pCO2 POC ABG pO2 POC ABG HCO3 POC ABG Total CO2 POC ABG O2 Sat POC ABG Base Excess FiO2 Sodium Potassium Chloride Carbon Dioxide Anion Gap BUN Creatinine Estimated GFR BUN/Creatinine Ratio Glucose Lactic Acid 1.00 Calcium Magnesium Total Bilirubin Direct Bilirubin Indirect Bilirubin AST ALT Alkaline Phosphatase Total Creatine Kinase CK-MB (CK-2) CK-MB (CK-2) Rel Index Troponin T NT-Pro-B Natriuret Pep Total Protein Albumin Albumin/Globulin Ratio HCG, Qual Negative Critical Care Time: Yes Critical care time in (mins) excluding proc time.: 90 Critical care attestation.: If time is entered above; I have spent that time in minutes in the direct care of this critically ill patient, excluding procedure time. 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
--- NOTE | 2018-12-12 15:49 | Cat Scan Report ---
CT HEAD WITHOUT CONTRAST INDICATION : HTN AMS. TECHNIQUE: Axial imaging performed from the skull apex through the skull base without the use of con trast. All CT scans at this location are performed using CT dose reduction for ALARA by means of aut omated exposure control. COMPARISON: None FINDINGS: Parenchyma: No abnormal density. No mass or mass effect. No hemorrhage or edema. Ventricles: Ventricles are normal in size and appear symmetric. Soft tissues: Soft tissues including the orbits appear normal. Bones: No acute osseous abnormality. Sinuses: Sinuses and mastoid air cells are clear. IMPRESSION: Normal head CT. Signer Name: Josse Benson MD Signed: 12/12/2018 3:45 PM Workstation Name: [id number]
[2018-12-12] MEDS: BENADRYL IV SCH ×2 (16:57→23:55)
[2018-12-12 17:57] LABS: Bacteria,Urine 2+ /HPF (Negative); Bilirubin,Urine NEG (Negative); Blood,Urine NEG (Negative); Color,Urine Yellow (Yellow); Hyaline Casts,Urine 4 /LPF; Mucus,Urine FEW /HPF; Protein,Urine <15 mg/dL mg/dL (Negative); Urobilinogen,Urine < 2.0 mg/dL (<2.0)
[2018-12-12 18:00] LABS: HCG Qualitative,Urine Negative (Negative)
[2018-12-12 18:15] LABS: Amphetamine Screen,Urine PRESUMPTIVE NEGATIVE; Cannabinoid Screen,Urine PRESUMPTIVE NEGATIVE; Cocaine Screen,Urine PRESUMPTIVE NEGATIVE; Methadone Screen,Urine PRESUMPTIVE NEGATIVE; Opiate Screen,Urine PRESUMPTIVE NEGATIVE
[2018-12-12 18:38] LABS: Benzodiazepines Screen,Urine PRESUMPTIVE POSITIVE
[2018-12-12] MEDS: PEPCID IV SCH (22:16)
[2018-12-12] MEDS: SOLU-Medrol IV SCH (22:16)
[2018-12-12] MEDS: SODIUM CHLORIDE FLUSH SYRINGE 10 ML IV SCH (22:17)
[2018-12-12] MEDS: ENOXAPARIN SUB-Q SCH (22:17)
[2018-12-12] MEDS: SODIUM CHLORIDE FLUSH SYRINGE 10 ML IV PRN ×2 (22:17→23:55)
[2018-12-12] MEDS ORDERED: VERSED IV ONE (22:54)
[2018-12-12] MEDS ORDERED: QUELICIN ONE (22:54)
--- NOTE | 2018-12-13 01:23 | Consultation ---
PULMONARY CRITICAL CARE CONSULTATION NOTE CONSULTING PHYSICIAN: Dr. Gaspar. REASON FOR CONSULTATION: Acute hypoxemic respiratory failure, on mechanical ventilatory support. CHIEF COMPLAINT AND HISTORY OF PRESENT ILLNESS: As follows, the patient is a 38-year-old -L[place]ian female. The past medical history as far as we can tell is significant for a diagnosis of hypertension for which she was recently started on lisinopril. According to the records, she took a first lisinopril p.o. the night before presentation. In the morning, she found that she has swollen lips. EMS was notified. They were told her to come to urgent care clinic, but again, this had through the grapevine it seems like. She did present to urgent care clinic. By then, her lipedema had worsened. Emergency medical services were called. She was brought into the Emergency Department with significant lymphedema, some mild submental edema. Her voice was beginning to sound muffled/hot potato type. The patient said she never had this kind of reaction before. At some point, despite receiving medications for anaphylaxis, the patient became significantly hypertensive. She continued to deteriorate. She was intubated, rapid sequence intubation in the ER, and transferred to the Intensive Care Unit where I stopped by to see her. When I stopped by to see her, she was resting peacefully on the mechanical ventilator, riding the set rate of 16. She was on a propofol drip at 25 mcg per kilogram per minute as well as Ativan at 2 mg per hour. I do not have any history of vomiting or overt aspiration. The patient is described as occasional smoker according to the records. This really is as much of the history of presentation as I have. PAST MEDICAL HISTORY: Hypertension. PAST SURGICAL HISTORY: She has had an ovarian cystectomy and C-sections x 5. MEDICATIONS: She was on at the time I stopped by to see her were reviewed. Pertinent medications include the following: Albuterol 2.5 mg nebulized q.3 hours p.r.n. shortness of breath, fentanyl drip to be started at 1 mcg/kg per hour. She was on Ativan 2 mg per hour. She was on propofol as mentioned above, Solu-Medrol 40 mg IV q.12 hours. Nicardipine drip had been going at 5 mg an hour. She received some Decadron in the Emergency Room. ALLERGIES: LISINOPRIL AND PENICILLINS. It appears LISINOPRIL causes angioedema. DIET: Thin lady, acute weight loss or gain, history is unknown. FAMILY AND SOCIAL HISTORY: Apparently lives in the community. Occasional smoker per the records. Alcohol, tobacco, or illicit drug use or abuse history is otherwise unknown. Family history is otherwise unobtainable. REVIEW OF SYSTEMS: Unobtainable secondary to the patient's medical and mental condition. Since she has been here, no gross hematochezia or melena, no gross hematuria, no hematemesis, no bloody tracheal secretions, no witnessed seizures. Review of systems otherwise as in the body of history above. PHYSICAL EXAMINATION: VITAL SIGNS: On examination at presentation in the Emergency Room, afebrile, temperature 97.8 degrees Fahrenheit, pulse of 89, respiratory rate of 12, blood pressure was 202/138, O2 sats 100%, inspired oxygen concentration at that time was not recorded. When I stopped by to see her, her O2 sats were 99% that was on the assist control mode of ventilation, tidal volumes 450, rate of 16 and a PEEP of 6, and FiO2, I believe was 50%. GENERAL: She is an -L[place]uanian female, who is intubated on the mechanical ventilator with obvious lip and submental swelling without significant patient ventilator dyssynchrony. HEAD, EYES, EARS, NOSE AND THROAT: She is anicteric. No conjunctival erythema. Oropharynx is moist. ET tube is about 23-24 cm at the lips. No gross jugular venous distention, no thyromegaly. Her lips are swollen. NECK: Grossly, no palpable lymph nodes in the supraclavicular or submandibular lymph node chains. LUNGS: Auscultation of both lung esteban unremarkable. Lungs are clear bilaterally. Good bilateral breath sounds. HEART: Heart sounds 1 and 2 are heard. They were regular in rate and rhythm at time of my evaluation without overt rubs or murmurs. ABDOMEN: Soft, flat. Bowel sounds are positive, nontender, no palpable hepatosplenomegaly. EXTREMITIES: Without overt digital clubbing or cyanosis. No pedal edema. No suprapubic tenderness or swelling or obvious mass. NEUROLOGIC: Pupils were about 1 mm bilaterally. Extraocular muscle movements could not be accessed. She was moving her all extremities to stimulation, but not waking up to command. SKIN: Normal turgor without overt cellulitis or rash. LABORATORY DATA: From my review are as follows: White cell count 11,900, hemoglobin 10.1, hematocrit 31.9, and platelet count 309. No band forms reported on the manual differential. INR 1.09. Arterial blood gas showed a pH of 7.40, pCO2 of 39, pO2 of 385 that was on the above-mentioned vent settings on 70% FiO2. Serum sodium 136, potassium 3.5, chloride 101, bicarbonate 19, BUN 8, creatinine 0.4, glucose was 166. Lactic acid level within normal limits. Total bilirubin slightly elevated at 1.3. Otherwise, liver function tests essentially within normal limits. Troponin within normal limits. test negative. Tracheal aspirate is pending. She had a CT scan of the head. I await the official report. A chest x-ray was done. Essentially, it shows endotracheal tube with the tip at the level of the aortic knob about 3-4 cm above the rosanna, otherwise unremarkable. Lungs are clear bilaterally. ASSESSMENT: 1. Acute respiratory failure, now on mechanical ventilatory support. 2. Angioedema, presumably secondary to lisinopril ingestion. 3. Hypertension. 4. Oropharyngeal dysphagia. 5. Mild leukocytosis. 6. Mild metabolic acidosis as evidenced with a serum bicarbonate of 19. 7. Hyperbilirubinemia. PLAN: We will keep her on the ventilator in the short time. I will add antihistamine therapy with Benadryl and Pepcid and continue the systemic steroids. We will follow her clinically off antibiotics. Ventilator-associated pneumonia bundle will be introduced. Oxygen will be weaned to keep sats greater than or equal to about 90%. Aspiration precautions will be maintained. Bronchodilators will be kept on a p.r.n. basis. Potassium will be supplemented 40 mEq KCl orally. Nutrition consult will be placed for enteral nutrition to begin. Feeding tube will be ordered and a KUB will be used for confirmation. I will put her on GI and DVT prophylaxis. Sedation will be titrated to reach RASS scale of 0 to -1. Flu and pneumonia vaccination will be addressed per protocol. Thank you very much for the consult Dr. Gaspar and Dr. Null. We will follow along and make further recommendations as picture progresses/becomes clearer. She is critically ill on life-sustaining interventions including mechanical ventilatory support at high risk of deterioration including the risk of . At this time, I spent about 35 minutes of critical care time without overlap excluding any procedural time that may be necessary. JOB# [id number] CARMEN/SONYA WEINSTEIN
--- NOTE | 2018-12-13 04:09 | XRay Report ---
CHEST 1 VIEW INDICATION / CLINICAL INFORMATION: follow up respiratory failure. COMPARISON: 12/12/2018 FINDINGS: SUPPORT DEVICES: No significant change in position. HEART / MEDIASTINUM: The cardiomediastinal silhouette has not significantly changed in the interim. LUNGS / PLEURA: No significant pulmonary or pleural abnormality. No pneumothorax. Signer Name: Joao Myers MD Signed: 12/13/2018 4:05 AM Workstation Name: [id number]
[2018-12-13 05:29] LABS: Alanine Aminotransferase 9 units/L (7-56); BUN/Creatinine Ratio 16; Blood Urea Nitrogen 11 mg/dL (7-17); Calcium 8.7 mg/dL (8.4-10.2); Hemolysis Index 4
[2018-12-13] MEDS: BENADRYL IV SCH ×2 (07:59→16:14)
[2018-12-13] MEDS: PEPCID IV SCH ×2 (09:26→21:31)
[2018-12-13] MEDS: SOLU-Medrol IV SCH ×2 (09:26→21:31)
[2018-12-13] MEDS: SODIUM CHLORIDE FLUSH SYRINGE 10 ML IV SCH ×2 (09:26→21:32)
[2018-12-13] MEDS: DIPRIVAN 10 MG/ML 1,000 MG/100 ML BOTTLE IV SCH ×2 (09:27→21:30)
--- NOTE | 2018-12-13 12:21 | Progress Note ---
Assessment and Plan / Acute hypoxemic respiratory failure due to angioedema Monitor ICU, wean off vent as tolerated, daily SBT, supplemental oxygen, nebulizer therapy, ABG, The high probability of a clinically significant, sudden or life threatening deterioration of the [neuro, respiratory, ] system(s) required my full and direct attention, intervention and personal management. The aggregate critical care time was [65] minutes. This time is in addition to time spent performing reported procedures but includes the following: [x] Data Review and interpretation [x] Patient assessment and monitoring of vital signs [x] Documentation [x] Medication orders and management / Angioedema due to angiotensin converting enzyme inhibitor (PAM-I): cont IV steroid therapy, supportive care, Lisinopril cessation iv benadryl /Metabolic Acidosis IVF resuscitation therapy, supportive care. repeat bmp / Malignant hypertension Monitor bp, wean off cardene drip as tolerated, /Hypokalemia, repleted /SIRS due to respiratory failure from angioedema - cont to monitor off abx, ordered tracheal aspirate / DVT prophylaxis SCD to ble while in bed, prophylactic lovenox Subjective Date of service: 12/13/18 Interval history: Patient seen and examined Patient intubated and sedated No family member at bedside discussed plan of care with RN Objective - Constitutional Vitals: Vital Signs - 12hr 12/13/18 12/13/18 12/13/18 00:30 00:34 01:00 Temperature Pulse Rate 92 H 92 H 90 Respiratory 16 16 Rate Blood Pressure 141/101 141/101 155/102 O2 Sat by Pulse 100 100 Oximetry 12/13/18 12/13/18 12/13/18 01:30 02:00 02:30 Temperature Pulse Rate 91 H 89 90 Respiratory 16 16 16 Rate Blood Pressure 137/101 144/98 143/97 O2 Sat by Pulse Oximetry 12/13/18 12/13/18 12/13/18 03:00 03:30 03:48 Temperature Pulse Rate 93 H 93 H Respiratory 14 16 20 Rate Blood Pressure 144/99 138/98 O2 Sat by Pulse 99 Oximetry 12/13/18 12/13/18 12/13/18 04:00 04:12 04:30 Temperature 99.3 F Pulse Rate 92 H 92 H 93 H Respiratory 16 14 Rate Blood Pressure 137/94 137/94 144/102 O2 Sat by Pulse 100 Oximetry 12/13/18 12/13/1819 05:00 05:30 06:00 Temperature Pulse Rate 91 H 91 H 87 Respiratory 14 14 14 Rate Blood Pressure 138/97 129/93 125/87 O2 Sat by Pulse Oximetry 12/13/18 12/13/18 12/13/18 06:30 07:00 07:30 Temperature Pulse Rate 85 86 84 Respiratory 14 14 14 Rate Blood Pressure 128/84 128/89 121/85 O2 Sat by Pulse Oximetry 12/13/18 12/13/18 12/13/18 08:00 08:30 09:00 Temperature 99.5 F Pulse Rate 82 83 80 Respiratory 14 14 14 Rate Blood Pressure 132/87 133/92 133/88 O2 Sat by Pulse 100 Oximetry 12/13/18 12/13/18 12/13/18 09:30 10:00 10:30 Temperature Pulse Rate 80 83 80 Respiratory 14 14 14 Rate Blood Pressure 130/88 142/94 158/101 O2 Sat by Pulse Oximetry 12/13/18 12/13/18 12/13/18 10:35 11:00 11:30 Temperature Pulse Rate 83 80 84 Respiratory 14 14 12 Rate Blood Pressure 158/101 161/109 171/111 O2 Sat by Pulse 100 100 Oximetry 12/13/18 12:00 Temperature Pulse Rate 86 Respiratory 13 Rate Blood Pressure 172/115 O2 Sat by Pulse 100 Oximetry General appearance: Present: no acute distress - EENT Eyes: no scleral icterus, no conjunctival injection ENT: clear oral mucosa, other (swelling of the lowe lip noted) Ears: bilateral: normal - Neck Neck: no enlarged thyroid, no masses or JVD - Respiratory Respiratory: bilateral: CTA (on vent) - Cardiovascular Rhythm: regular Heart Sounds: Present: S1 & S2. Absent: gallop, rub Extremities: pulses intact, No edema, normal color - Gastrointestinal General gastrointestinal: Present: soft, non-distended, normal bowel sounds - Integumentary Integumentary: clear, warm, dry - Neurologic Neurologic: other (sedated) - Psychiatric Psychiatric: other (unable to asess) - Labs CBC & Chem 7: 12/14/18 05:01 12/14/18 05:01 Labs: Abnormal lab results 12/12/18 12/12/18 12/12/18 Range/Units 11:24 11:24 12:04 Seg Neuts % (Manual) 90.0 H (40.0-70.0) % Lymphocytes % (Manual) 6.0 L (13.4-35.0) % Seg Neutrophils # Man 10.7 H (1.8-7.7) K/mm3 Lymphocytes # (Manual) 0.7 L (1.2-5.4) K/mm3 POC ABG pH (7.35-7.45) POC ABG pCO2 (35-45) POC ABG pO2 (80-105) Sodium 136 L (137-145) mmol/L Potassium 3.5 L (3.6-5.0) mmol/L Carbon Dioxide 19 L (22-30) mmol/L Creatinine 0.4 L (0.7-1.2) mg/dL Glucose 166 H (65-100) mg/dL Total Bilirubin (0.1-1.2) mg/dL Total Creatine Kinase 141 H (30-135) units/L Urine WBC (Auto) (0.0-6.0) /HPF 12/12/18 12/12/18 12/13/18 Range/Units 12:04 17:00 04:05 Seg Neuts % (Manual) (40.0-70.0) % Lymphocytes % (Manual) (13.4-35.0) % Seg Neutrophils # Man (1.8-7.7) K/mm3 Lymphocytes # (Manual) (1.2-5.4) K/mm3 POC ABG pH (7.35-7.45) POC ABG pCO2 (35-45) POC ABG pO2 (80-105) Sodium 136 L (137-145) mmol/L Potassium (3.6-5.0) mmol/L Carbon Dioxide 19 L (22-30) mmol/L Creatinine (0.7-1.2) mg/dL Glucose 126 H (65-100) mg/dL Total Bilirubin 1.30 H (0.1-1.2) mg/dL Total Creatine Kinase (30-135) units/L Urine WBC (Auto) 7.0 H (0.0-6.0) /HPF 12/13/18 Range/Units 04:32 Seg Neuts % (Manual) (40.0-70.0) % Lymphocytes % (Manual) (13.4-35.0) % Seg Neutrophils # Man (1.8-7.7) K/mm3 Lymphocytes # (Manual) (1.2-5.4) K/mm3 POC ABG pH 7.455 H (7.35-7.45) POC ABG pCO2 31.2 L (35-45) POC ABG pO2 144 H (80-105) Sodium (137-145) mmol/L Potassium (3.6-5.0) mmol/L Carbon Dioxide (22-30) mmol/L Creatinine (0.7-1.2) mg/dL Glucose (65-100) mg/dL Total Bilirubin (0.1-1.2) mg/dL Total Creatine Kinase (30-135) units/L Urine WBC (Auto) (0.0-6.0) /HPF
--- NOTE | 2018-12-13 12:32 | Progress Note ---
Assessment and Plan Acute respiratory failure, now on mechanical ventilatory support. Angioedema, presumably secondary to lisinopril ingestion. Hypertension. Oropharyngeal dysphagia. Mild leukocytosis. Mild metabolic acidosis as evidenced with a serum bicarbonate of 19. Hyperbilirubinemia. - continue systemic steroids & antihistamine therapy for angioedema - VAP bundle addressed - continue to wean FiO2 for sats > 90% - continue daily SAT's and SBT assessment as tolerated - target sedation for RASS 0 to -1 - prn analgesia per CPOT score - Monitor hemodynamics closely - begin enteral nutrition as tolerated - continue mobility protocols and off loading as tolerated for pressure ulcer prophylaxis - avoid nephrotoxins, adjust all medications for GFR and CRCL - continue GI & VTE prophylaxis with - accuchecks with glycemic control per SSI for target BG of 140-180 mg/dl acutely - continue other care per attending / other consultants ... re-evaluate in am & prn CONDITION: CRITICAL PROGNOSIS: VERY GUARDED CODE STATUS: FULL CODE Discussed extensively with RT/RN and care team in ICU IDT rounds The high probability of a clinically significant, sudden or life threatening deterioration of the [respiratory & immunologic] system's' required my full and direct attention, intervention and personal management. The aggregate critical care time was 32 minutes. This time is in addition to time spent performing reported procedures but includes the following: [x] Data Review and interpretation [x] Patient assessment and monitoring of vital signs [x] Documentation [x] Medication orders and management Subjective Date of service: 12/13/18 Principal diagnosis: Ac. Resp failure; Angioedema; HTN; Oropharyngeal dysphagia; leukocytosis Interval history: Patient is seen today for: Ac. Resp failure; Angioedema; Hypertension; Oropharyngeal dysphagia; Mild leukocytosis; Mild metabolic acidosis; Hyperbilirubinemia. Seen and examined at bedside; 24hour events reviewed; nursing and respiratory care staff consulted; no adverse overnight events reported to me; resting peacefully in bed; remains on MVS; nods head yes to pain question; neck and lip swelling improved but persistent; No N/V/F/C Objective Vital Signs - 12hr 12/13/18 12/13/18 12/13/18 00:30 00:34 01:00 Temperature Pulse Rate 92 H 92 H 90 Respiratory 16 16 Rate Blood Pressure 141/101 141/101 155/102 O2 Sat by Pulse 100 100 Oximetry 12/13/18 12/13/18 12/13/18 01:30 02:00 02:30 Temperature Pulse Rate 91 H 89 90 Respiratory 16 16 16 Rate Blood Pressure 137/101 144/98 143/97 O2 Sat by Pulse Oximetry 12/13/18 12/13/18 12/13/18 03:00 03:30 03:48 Temperature Pulse Rate 93 H 93 H Respiratory 14 16 20 Rate Blood Pressure 144/99 138/98 O2 Sat by Pulse 99 Oximetry 12/13/18 12/13/18 12/13/18 04:00 04:12 04:30 Temperature 99.3 F Pulse Rate 92 H 92 H 93 H Respiratory 16 14 Rate Blood Pressure 137/94 137/94 144/102 O2 Sat by Pulse 100 Oximetry 12/13/18 12/13/18 12/13/18 05:00 05:30 06:00 Temperature Pulse Rate 91 H 91 H 87 Respiratory 14 14 14 Rate Blood Pressure 138/97 129/93 125/87 O2 Sat by Pulse Oximetry 12/13/18 12/13/18 12/13/18 06:30 07:00 07:30 Temperature Pulse Rate 85 86 84 Respiratory 14 14 14 Rate Blood Pressure 128/84 128/89 121/85 O2 Sat by Pulse Oximetry 12/13/18 12/13/18 12/13/18 08:00 08:30 09:00 Temperature 99.5 F Pulse Rate 82 83 80 Respiratory 14 14 14 Rate Blood Pressure 132/87 133/92 133/88 O2 Sat by Pulse 100 Oximetry 12/13/18 12/13/18 12/13/18 09:30 10:00 10:30 Temperature Pulse Rate 80 83 80 Respiratory 14 14 14 Rate Blood Pressure 130/88 142/94 158/101 O2 Sat by Pulse Oximetry 12/13/18 12/13/18 12/13/18 10:35 11:00 11:30 Temperature Pulse Rate 83 80 84 Respiratory 14 14 12 Rate Blood Pressure 158/101 161/109 171/111 O2 Sat by Pulse 100 100 Oximetry 12/13/18 12:00 Temperature Pulse Rate 86 Respiratory 13 Rate Blood Pressure 172/115 O2 Sat by Pulse 100 Oximetry Constitutional: appears uncomfortable, other (young AAF with mildly increased resp effort on MVS) Eyes: non-icteric ENT: oropharynx moist, other (ETT 24 cm EMY) Neck: supple, no lymphadenopathy, no JVD, other (submental swelling) Effort: mildly labored Ascultation: Bilateral: clear Percussion: Bilateral: not dull Cardiovascular: regular rate and rhythm Gastrointestinal: normoactive bowel sounds, soft, non-tender, non-distended Integumentary: normal Extremities: no cyanosis, no edema Neurologic: non-focal exam (grossly), pupils equal and round, CN II-XII normal, motor strength normal and Psychiatric: anxious CBC and BMP: 12/14/18 05:01 12/14/18 05:01 ABG, PT/INR, D-dimer: ABG POC ABG pH 7.455 (7.35-7.45) H 12/13/18 04:32 POC ABG pCO2 31.2 (35-45) L 12/13/18 04:32 POC ABG pO2 144 (80-105) H 12/13/18 04:32 POC ABG HCO3 22.0 (22-26 mml/L) 12/13/18 04:32 POC ABG Total CO2 23 (23-27mmol/L) 12/13/18 04:32 POC ABG O2 Sat 99 12/13/18 04:32 PT/INR, D-dimer PT 13.8 Sec. (12.2-14.9) 12/12/18 12:04 INR 1.09 (0.87-1.13) 12/12/18 12:04 Abnormal lab findings: Abnormal Labs 12/12/18 12/12/18 12/12/18 11:24 11:24 11:30 WBC 11.9 H MCV 76 L MCH 24 L RDW 19.7 H Seg Neuts % (Manual) 90.0 H Lymphocytes % (Manual) 6.0 L Seg Neutrophils # Man 10.7 H Lymphocytes # (Manual) 0.7 L POC ABG pH POC ABG pCO2 POC ABG pO2 385 H Sodium 136 L Potassium 3.5 L Carbon Dioxide 19 L Creatinine 0.4 L Glucose 166 H Total Bilirubin Total Creatine Kinase Urine WBC (Auto) 12/12/18 12/12/18 12/12/18 12:04 12:04 17:00 WBC MCV MCH RDW Seg Neuts % (Manual) Lymphocytes % (Manual) Seg Neutrophils # Man Lymphocytes # (Manual) POC ABG pH POC ABG pCO2 POC ABG pO2 Sodium Potassium Carbon Dioxide Creatinine Glucose Total Bilirubin 1.30 H Total Creatine Kinase 141 H Urine WBC (Auto) 7.0 H 12/13/18 12/13/18 04:05 04:32 WBC MCV MCH RDW Seg Neuts % (Manual) Lymphocytes % (Manual) Seg Neutrophils # Man Lymphocytes # (Manual) POC ABG pH 7.455 H POC ABG pCO2 31.2 L POC ABG pO2 144 H Sodium 136 L Potassium Carbon Dioxide 19 L Creatinine Glucose 126 H Total Bilirubin Total Creatine Kinase Urine WBC (Auto) Chest x-ray: image reviewed (ETT in goood position; no focal infiltrate) Allied health notes reviewed: nursing
[2018-12-13] MEDS ORDERED: PANCREAZE DR 10,500 UNIT FEEDTUBE PRN (15:42)
[2018-12-13] MEDS ORDERED: SODIUM BICARBONATE FEEDTUBE PRN (15:42)
[2018-12-13] MEDS ORDERED: SIMPLE SYRUP FEEDTUBE PRN ×2 (15:42)
[2018-12-13] MEDS: ENOXAPARIN SUB-Q SCH (21:31)
--- NOTE | 2018-12-13 21:51 | XRay Report ---
ABDOMEN 1 VIEW(S) 12/13/2018 9:28 PM INDICATION / CLINICAL INFORMATION: feeding tube placement. COMPARISON: None available. FINDINGS: The tip of a weighted feeding tube projects over the body of the stomach. Unremarkable abdominal gas pattern. The lung bases are clear. Signer Name: Rober Ovalle MD Signed: 12/13/2018 9:47 PM Workstation Name: [id number]
[2018-12-13] MEDS: ATIVAN IV PRN (23:41)
[2018-12-13] MEDS: APRESOLINE IV PRN (23:42)
[2018-12-14] MEDS: BENADRYL IV SCH ×2 (00:45→08:49)
--- NOTE | 2018-12-14 03:02 | XRay Report ---
CHEST 1 VIEW INDICATION / CLINICAL INFORMATION: Chest pain COMPARISON: None available. FINDINGS: SUPPORT DEVICES: Unchanged HEART / MEDIASTINUM: No significant abnormality. LUNGS / PLEURA: No significant pulmonary or pleural abnormality. No pneumothorax. Signer Name: Joao Myers MD Signed: 12/14/2018 2:58 AM Workstation Name: [id number]
[2018-12-14] MEDS: DIPRIVAN 10 MG/ML 1,000 MG/100 ML BOTTLE IV SCH ×2 (04:15→08:48)
[2018-12-14 05:23] LABS: Hematocrit 30.5 % (30.3-42.9); Hemoglobin 9.6 gm/dl (10.1-14.3); Mean Corpuscular HGB Conc 32 % (30-34); Mean Corpuscular Volume 76 fl (79-97); Platelet Count 296 K/mm3 (140-440); Red Blood Count 4.03 M/mm3 (3.65-5.03); Red Cell Distribution Width 19.7 % (13.2-15.2)
[2018-12-14 05:49] LABS: BUN/Creatinine Ratio 22; Blood Urea Nitrogen 13 mg/dL (7-17); Calcium 8.7 mg/dL (8.4-10.2); Hemolysis Index 0
[2018-12-14 06:18] LABS: Anisocytosis 1+; Basophils % (Manual) 0 % (0.0-1.8); Eosinophils % (Manual) 0 % (0.0-4.3); Hypochromasia 1+; Total Cells Counted 100
[2018-12-14 06:19] LABS: Platelet Estimate Consistent w Auto
[2018-12-14] MEDS: SODIUM CHLORIDE FLUSH SYRINGE 10 ML IV SCH ×2 (09:30→21:17)
[2018-12-14] MEDS: PEPCID IV SCH ×2 (09:30→21:17)
[2018-12-14] MEDS: SOLU-Medrol IV SCH ×2 (09:30→21:17)
--- NOTE | 2018-12-14 12:23 | Progress Note ---
Assessment and Plan / Acute hypoxemic respiratory failure due to angioedema Monitored at ICU, extubated today, cont supplemental oxygen, nebulizer therapy, ABG, CC following /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 repeat bmp / Malignant hypertension Monitor bp, weaned off cardene drip as tolerated, hydrazine iv to keep SBP < 160, start norvasc po /Hypokalemia, repleted /SIRS due to respiratory failure from angioedema - cont to monitor off abx, negative tracheal aspirate / DVT prophylaxis SCD to ble while in bed, prophylactic lovenox The high probability of a clinically significant, sudden or life threatening deterioration of the [multiple] system(s) required my full and direct attention, intervention and personal management. The aggregate critical care time was [32] minutes. This time is in addition to time spent performing reported procedures but includes the following: [x] Data Review and interpretation [x] Patient assessment and monitoring of vital signs [x] Documentation [x] Medication orders and management Disposition: start on clear liquid diet, monitor BP, if clinically stable then transfer out of tele and possible discharge tomorrow Subjective Date of service: 12/14/18 Principal diagnosis: Ac. Resp failure; Angioedema; HTN; Oropharyngeal dysphagia; leukocytosis Interval history: Patient seen and examined Patient extubated today, off cardene drip discussed plan of care with RN and patient Objective - Constitutional Vitals: Vital Signs - 12hr 12/14/18 12/14/18 12/14/18 00:30 01:00 01:23 Temperature Pulse Rate 81 85 84 Pulse Rate [ Left Dorsalis Pedis] Respiratory 12 12 Rate Blood Pressure 131/89 137/91 123/89 O2 Sat by Pulse 100 100 Oximetry 12/14/18 12/14/18 12/14/18 01:30 02:00 02:30 Temperature Pulse Rate 81 79 83 Pulse Rate [ Left Dorsalis Pedis] Respiratory 12 12 9 L Rate Blood Pressure 127/84 128/89 132/89 O2 Sat by Pulse 99 99 Oximetry 12/14/18 12/14/18 12/14/18 03:00 03:30 04:00 Temperature 98.8 F Pulse Rate 83 82 80 Pulse Rate [ 81 Left Dorsalis Pedis] Respiratory 12 12 12 Rate Blood Pressure 120/76 118/74 127/83 O2 Sat by Pulse 100 Oximetry 12/14/18 12/14/18 12/14/18 04:30 04:51 05:00 Temperature Pulse Rate 77 77 76 Pulse Rate [ Left Dorsalis Pedis] Respiratory 12 12 Rate Blood Pressure 109/71 106/73 112/75 O2 Sat by Pulse 100 100 Oximetry 12/14/18 12/14/18 12/14/18 05:30 06:00 06:30 Temperature Pulse Rate 80 78 75 Pulse Rate [ Left Dorsalis Pedis] Respiratory 20 12 12 Rate Blood Pressure 118/79 111/78 116/72 O2 Sat by Pulse 100 100 100 Oximetry 12/14/18 12/14/18 12/14/18 07:00 07:30 08:00 Temperature 99.2 F Pulse Rate 75 81 76 Pulse Rate [ Left Dorsalis Pedis] Respiratory 12 11 L 12 Rate Blood Pressure 112/72 120/83 116/78 O2 Sat by Pulse 100 100 Oximetry 12/14/18 12/14/18 12/14/18 08:30 09:00 09:15 Temperature Pulse Rate 72 81 94 H Pulse Rate [ Left Dorsalis Pedis] Respiratory 12 14 12 Rate Blood Pressure 119/77 131/90 146/98 O2 Sat by Pulse 100 100 Oximetry 12/14/18 12/14/18 12/14/18 09:30 10:00 10:30 Temperature Pulse Rate 82 83 89 Pulse Rate [ Left Dorsalis Pedis] Respiratory 12 13 13 Rate Blood Pressure 146/99 140/96 135/95 O2 Sat by Pulse 100 100 Oximetry 12/14/18 12/14/18 12/14/18 11:00 11:30 12:00 Temperature Pulse Rate 80 92 H 84 Pulse Rate [ Left Dorsalis Pedis] Respiratory 10 L 15 12 Rate Blood Pressure 141/100 158/99 163/109 O2 Sat by Pulse 100 100 Oximetry General appearance: Present: no acute distress - EENT Eyes: PERRL, EOM intact ENT: hearing intact, clear oral mucosa Ears: bilateral: normal - Neck Neck: supple, normal ROM - Respiratory Respiratory effort: normal Respiratory: bilateral: CTA - Cardiovascular Heart Sounds: Present: S1 & S2. Absent: gallop, rub Extremities: pulses intact, No edema, normal color, Full ROM - Gastrointestinal General gastrointestinal: Present: soft, non-tender, non-distended, normal bowel sounds - Integumentary Integumentary: clear, warm, dry - Musculoskeletal Musculoskeletal: 1, strength equal bilaterally - Neurologic Neurologic: no focal deficits, moves all extremities - Psychiatric Psychiatric: cooperative - Labs CBC & Chem 7: 12/14/18 05:01 12/14/18 05:01 Labs: Abnormal lab results 12/14/18 12/14/18 12/14/18 Range/Units 05:01 05:01 05:43 WBC 11.8 H (4.5-11.0) K/mm3 Hgb 9.6 L (10.1-14.3) gm/dl MCV 76 L (79-97) fl MCH 24 L (28-32) pg RDW 19.7 H (13.2-15.2) % Seg Neuts % (Manual) 89.0 H (40.0-70.0) % Lymphocytes % (Manual) 5.0 L (13.4-35.0) % Seg Neutrophils # Man 10.5 H (1.8-7.7) K/mm3 Lymphocytes # (Manual) 0.6 L (1.2-5.4) K/mm3 POC ABG pH (7.35-7.45) POC ABG pCO2 (35-45) POC ABG pO2 131 H (80-105) Sodium 136 L (137-145) mmol/L Creatinine 0.6 L (0.7-1.2) mg/dL Glucose 114 H (65-100) mg/dL 12/14/18 Range/Units 12:20 WBC (4.5-11.0) K/mm3 Hgb (10.1-14.3) gm/dl MCV (79-97) fl MCH (28-32) pg RDW (13.2-15.2) % Seg Neuts % (Manual) (40.0-70.0) % Lymphocytes % (Manual) (13.4-35.0) % Seg Neutrophils # Man (1.8-7.7) K/mm3 Lymphocytes # (Manual) (1.2-5.4) K/mm3 POC ABG pH 7.485 H (7.35-7.45) POC ABG pCO2 32.0 L (35-45) POC ABG pO2 119 H (80-105) Sodium (137-145) mmol/L Creatinine (0.7-1.2) mg/dL Glucose (65-100) mg/dL
[2018-12-14] MEDS: ATIVAN IV PRN ×2 (12:34→21:24)
[2018-12-14] MEDS: APRESOLINE IV PRN (13:37)
--- NOTE | 2018-12-14 14:54 | Progress Note ---
Assessment and Plan Acute respiratory failure, now on mechanical ventilatory support. Angioedema, presumably secondary to lisinopril ingestion. Hypertension. Oropharyngeal dysphagia. Mild leukocytosis. Mild metabolic acidosis as evidenced with a serum bicarbonate of 19. Hyperbilirubinemia. - extubate - continue systemic steroids & antihistamine therapy for angioedema (Stopped Benadryl) - VAP bundle addressed - continue to wean FiO2 for sats > 90% - continue daily SAT's and SBT assessment as tolerated - target sedation for RASS 0 to -1 - prn analgesia per CPOT score - Monitor hemodynamics closely - begin enteral nutrition as tolerated - continue mobility protocols and off loading as tolerated for pressure ulcer prophylaxis - avoid nephrotoxins, adjust all medications for GFR and CRCL - continue GI & VTE prophylaxis with - accuchecks with glycemic control per SSI for target BG of 140-180 mg/dl acutely - continue other care per attending / other consultants ... re-evaluate in am & prn CONDITION: CRITICAL PROGNOSIS: VERY GUARDED CODE STATUS: FULL CODE Discussed extensively with RT/RN and care team in ICU IDT rounds The high probability of a clinically significant, sudden or life threatening de terioration of the [respiratory & immunologic] system's' required my full and direct attention, intervention and personal management. The aggregate critical care time was 35 minutes. This time is in addition to time spent performing reported procedures but includes the following: [x] Data Review and interpretation [x] Patient assessment and monitoring of vital signs [x] Documentation [x] Medication orders and management Subjective Date of service: 12/14/18 Principal diagnosis: Ac. Resp failure; Angioedema; HTN; Oropharyngeal dysphagia; leukocytosis Interval history: Patient is seen today for: Ac. Resp failure; Angioedema; Hypertension; Oropharyngeal dysphagia; Mild leukocytosis; Mild metabolic acidosis; Hyperbilirubinemia. Seen and examined at bedside; 24hour events reviewed; nursing and respiratory care staff consulted; no adverse overnight events reported to me; resting peacefully in bed; remains on MVS; tolerating PSV very well; swelling much better; good cuff leak; NO N/V/F/C; her daughter is visiting Objective Vital Signs - 12hr 12/14/18 12/14/18 12/14/18 03:00 03:30 04:00 Temperature 98.8 F Pulse Rate 83 82 80 Pulse Rate [ 81 Left Dorsalis Pedis] Respiratory 12 12 12 Rate Blood Pressure 120/76 118/74 127/83 O2 Sat by Pulse 100 Oximetry 12/14/18 12/14/18 12/14/18 04:30 04:51 05:00 Temperature Pulse Rate 77 77 76 Pulse Rate [ Left Dorsalis Pedis] Respiratory 12 12 Rate Blood Pressure 109/71 106/73 112/75 O2 Sat by Pulse 100 100 Oximetry 12/14/18 12/14/18 12/14/18 05:30 06:00 06:30 Temperature Pulse Rate 80 78 75 Pulse Rate [ Left Dorsalis Pedis] Respiratory 20 12 12 Rate Blood Pressure 118/79 111/78 116/72 O2 Sat by Pulse 100 100 100 Oximetry 12/14/18 12/14/18 12/14/18 07:00 07:30 08:00 Temperature 99.2 F Pulse Rate 75 81 76 Pulse Rate [ 81 Left Dorsalis Pedis] Respiratory 12 11 L 12 Rate Blood Pressure 112/72 120/83 116/78 O2 Sat by Pulse 100 100 100 Oximetry 12/14/18 12/14/18 12/14/18 08:30 09:00 09:15 Temperature Pulse Rate 72 81 94 H Pulse Rate [ Left Dorsalis Pedis] Respiratory 12 14 12 Rate Blood Pressure 119/77 131/90 146/98 O2 Sat by Pulse 100 100 Oximetry 12/14/18 12/14/18 12/14/18 09:30 10:00 10:30 Temperature Pulse Rate 82 77 89 Pulse Rate [ Left Dorsalis Pedis] Respiratory 12 13 13 Rate Blood Pressure 146/99 140/96 135/95 O2 Sat by Pulse 100 100 Oximetry 12/14/18 12/14/18 12/14/18 11:00 11:30 12:00 Temperature 100.1 F H Pulse Rate 80 92 H 84 Pulse Rate [ 92 H Left Dorsalis Pedis] Respiratory 10 L 15 12 Rate Blood Pressure 141/100 158/99 163/109 O2 Sat by Pulse 100 100 Oximetry 12/14/18 12/14/18 12/14/18 12:20 12:30 13:00 Temperature Pulse Rate 83 102 H 94 H Pulse Rate [ Left Dorsalis Pedis] Respiratory 15 18 12 Rate Blood Pressure 163/109 161/111 149/107 O2 Sat by Pulse 100 100 Oximetry 12/14/18 13:37 Temperature Pulse Rate 87 Pulse Rate [ Left Dorsalis Pedis] Respiratory Rate Blood Pressure 163/111 O2 Sat by Pulse Oximetry Constitutional: appears uncomfortable, other (young AAF with mildly increased resp effort on MVS) Eyes: non-icteric ENT: oropharynx moist, other (ETT 24 cm EMY) Neck: supple, no lymphadenopathy, no JVD, other (submental swelling) Effort: mildly labored Ascultation: Bilateral: clear Percussion: Bilateral: not dull Cardiovascular: regular rate and rhythm Gastrointestinal: normoactive bowel sounds, soft, non-tender, non-distended Integumentary: normal Extremities: no cyanosis, no edema Neurologic: normal mental status, non-focal exam (grossly), pupils equal and round, CN II-XII normal, motor strength normal and Psychiatric: mood appropriate, affect normal CBC and BMP: 12/14/18 05:01 12/14/18 05:01 ABG, PT/INR, D-dimer: ABG POC ABG pH 7.485 (7.35-7.45) H 12/14/18 12:20 POC ABG pCO2 32.0 (35-45) L 12/14/18 12:20 POC ABG pO2 119 (80-105) H 12/14/18 12:20 POC ABG HCO3 24.1 (22-26 mml/L) 12/14/18 12:20 POC ABG Total CO2 25 (23-27mmol/L) 12/14/18 12:20 POC ABG O2 Sat 99 12/14/18 12:20 PT/INR, D-dimer PT 13.8 Sec. (12.2-14.9) 12/12/18 12:04 INR 1.09 (0.87-1.13) 12/12/18 12:04 Abnormal lab findings: Abnormal Labs 12/12/18 12/12/18 12/12/18 11:24 11:24 11:30 WBC 11.9 H Hgb MCV 76 L MCH 24 L RDW 19.7 H Seg Neuts % (Manual) 90.0 H Lymphocytes % (Manual) 6.0 L Seg Neutrophils # Man 10.7 H Lymphocytes # (Manual) 0.7 L POC ABG pH POC ABG pCO2 POC ABG pO2 385 H Sodium 136 L Potassium 3.5 L Carbon Dioxide 19 L Creatinine 0.4 L Glucose 166 H Total Bilirubin Total Creatine Kinase Urine WBC (Auto) 12/12/18 12/12/18 12/12/18 12:04 12:04 17:00 WBC Hgb MCV MCH RDW Seg Neuts % (Manual) Lymphocytes % (Manual) Seg Neutrophils # Man Lymphocytes # (Manual) POC ABG pH POC ABG pCO2 POC ABG pO2 Sodium Potassium Carbon Dioxide Creatinine Glucose Total Bilirubin 1.30 H Total Creatine Kinase 141 H Urine WBC (Auto) 7.0 H 12/13/18 12/13/18 12/14/18 04:05 04:32 05:01 WBC 11.8 H Hgb 9.6 L MCV 76 L MCH 24 L RDW 19.7 H Seg Neuts % (Manual) 89.0 H Lymphocytes % (Manual) 5.0 L Seg Neutrophils # Man 10.5 H Lymphocytes # (Manual) 0.6 L POC ABG pH 7.455 H POC ABG pCO2 31.2 L POC ABG pO2 144 H Sodium 136 L Potassium Carbon Dioxide 19 L Creatinine Glucose 126 H Total Bilirubin Total Creatine Kinase Urine WBC (Auto) 12/14/18 12/14/18 12/14/18 05:01 05:43 12:20 WBC Hgb MCV MCH RDW Seg Neuts % (Manual) Lymphocytes % (Manual) Seg Neutrophils # Man Lymphocytes # (Manual) POC ABG pH 7.485 H POC ABG pCO2 32.0 L POC ABG pO2 131 H 119 H Sodium 136 L Potassium Carbon Dioxide Creatinine 0.6 L Glucose 114 H Total Bilirubin Total Creatine Kinase Urine WBC (Auto) Chest x-ray: image reviewed (ETT in good position; no focal infiltrate) Allied health notes reviewed: nursing
[2018-12-14] MEDS: ENOXAPARIN SUB-Q SCH (21:17)
[2018-12-15 09:55] VITALS: BP 156/108
[2018-12-15] MEDS: SODIUM CHLORIDE FLUSH SYRINGE 10 ML IV SCH (09:59)
[2018-12-15] MEDS ORDERED: METOPROLOL PO SCH (10:00)
[2018-12-15] MEDS ORDERED: PEPCID PO SCH (10:00)
--- NOTE | 2018-12-15 10:17 | Discharge Summary ---
Providers - Providers Date of Admission: 12/12/18 12:22 Date of discharge: 12/15/18 Attending physician: CHESTER REDMAN 12/12/18 10:32 Consult to Dietitian/Nutrition [CONS] Routine Physician Instructions: Reason For Exam: Reason for Consult: Evaluate nutritional intake 12/12/18 12:38 Consult to Physician [CONS] Routine Comment: Consulting Provider: CHELO LONGORIA Physician Instructions: Reason For Exam: critical care management 12/13/18 12:28 Consult to Dietitian/Nutrition [CONS] Stat Physician Instructions: Reason For Exam: Reason for Consult: Write/Manage Tube Feeding 12/13/18 15:42 Consult to Dietitian/Nutrition [CONS] Routine Physician Instructions: Reason For Exam: Reason for Consult: Write/Manage Tube Feeding Consult to Dietitian/Nutrition [CONS] Routine Physician Instructions: Assess nutrtn needs, initiate, modify, manage TF Reason For Exam: Reason for Consult: Write/Manage Tube Feeding Reason for Consult: Write/Manage Tube Feeding Primary care physician: MAINTENANCE CHIEF Hospitalization Condition: Stable Hospital course: Discharge diagnosis: / Acute hypoxemic respiratory failure due to angioedema Monitored at ICU, extubated today, cont supplemental oxygen, nebulizer therapy, ABG, CC following /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 repeat bmp / Malignant hypertension Monitor bp, weaned off cardene drip as tolerated, hydrazine iv to keep SBP < 160, start norvasc po /Hypokalemia, repleted /SIRS due to respiratory failure from angioedema - cont to monitor off abx, negative tracheal aspirate / DVT prophylaxis SCD to ble while in bed, prophylactic lovenox Disposition: -01 TO HOME OR SELFCARE Time spent for discharge: 34 minutes Core Measure Documentation - Palliative Care Palliative Care/ Comfort Measures: Not Applicable - Core Measures Any of the following diagnoses?: none Exam - Constitutional Vitals: Temp Pulse Resp BP Pulse Ox 98.8 F 108 H 14 156/108 100 12/15/18 08:00 12/15/18 09:54 12/15/18 09:00 12/15/18 09:54 12/15/18 08:00 General appearance: Present: no acute distress, well-nourished - EENT Eyes: Present: PERRL ENT: hearing intact, clear oral mucosa - Neck Neck: Present: supple, normal ROM - Respiratory Respiratory effort: normal Respiratory: bilateral: CTA - Cardiovascular Heart Sounds: Present: S1 & S2. Absent: rub, click - Extremities Extremities: pulses symmetrical, No edema Peripheral Pulses: within normal limits - Abdominal General gastrointestinal: Present: soft, non-tender, non-distended, normal bowel sounds - Integumentary Integumentary: Present: clear, warm, dry - Musculoskeletal Musculoskeletal: gait normal, strength equal bilaterally - Psychiatric Psychiatric: appropriate mood/affect, intact judgment & insight - Neurologic Neurologic: CNII-XII intact, moves all extremities Plan Activity: advance as tolerated Weight Bearing Status: Weight Bear as Tolerated Diet: low fat, low salt Special Instructions: record daily BP diary Follow up with: PRIMARY CARE, [Primary Care Provider] - 7 Days HIGINIO STERN MD [Staff Physician] - 7 Days Prescriptions: diphenhydrAMINE [Benadryl CAP] 25 mg PO Q8HR PRN #10 capsule PRN Reason: Allergic Reaction Metoprolol [Lopressor TAB] 25 mg PO BID #60 tablet amLODIPine [Norvasc] 10 mg PO DAILY #30 tab
[2018-12-15] MEDS: SOLU-Medrol IV SCH (10:36)
== END 2018-12-15 10:50 | disposition home or self-care (01) | DRG 208 ==
LOC: ED 09:34 → CC1 12:22
PROVIDERS: ADMIT Internal Medicine; ATTEND Internal Medicine
PROC: 5A1945Z Respiratory Ventilation, 24-96 Consecutive Hours (ICD-10-PCS; principal; 2018-12-12)
PROC: 0BH17EZ Insertion of Endotracheal Airway into Trachea, Via Natural or Artificial Opening (ICD-10-PCS; 2018-12-12)
PROC: 4A033R1 Measurement of Arterial Saturation, Peripheral, Percutaneous Approach (ICD-10-PCS; 2018-12-12)
DX: J96.01 Acute respiratory failure with hypoxia (principal); T78.3XXA Angioneurotic edema, initial encounter; I10 Essential (primary) hypertension; R13.12 Dysphagia, oropharyngeal phase; E80.6 Other disorders of bilirubin metabolism; R65.10 Systemic inflammatory response syndrome (SIRS) of non-infectious origin without acute organ dysfunction; E87.6 Hypokalemia; E87.2 Acidosis; T44.5X5A Adverse effect of predominantly beta-adrenoreceptor agonists, initial encounter; F17.200 Nicotine dependence, unspecified, uncomplicated; Z82.49 Family history of ischemic heart disease and other diseases of the circulatory system; Z83.3 Family history of diabetes mellitus; Z88.0 Allergy status to penicillin; Z88.6 Allergy status to analgesic agent; Y92.098 Other place in other non-institutional residence as the place of occurrence of the external cause
CPT/HCPCS: 36415; 36600; 70450; 71045; 74018; 80048; 80053; 80076; 80307; 81001; 81025; 82140; 82550; 82553; 82803; 83735; 83880; 84484; 84703; 85007; 85025; 85610; 85730; 87205; 94002; 94003; 94644; 96374; 96375; 99292; G0378; J0330; J0360; J1100; J1200; J1650; J2060; J2250; J2704; J2920; J3010; J7040; J7050